=== PATIENT | male | born 1965 | race Caucasian/White ===

== ENCOUNTER 2022-08-01 12:22 | Emergency (ER) | payer BC ==
[~2022-08-01] VITALS: Ht 172.7 cm; Wt 105.0 kg
[~2022-08-01 12:22] MED LIST: ACET1TAB12 PO; CLIN-97 PO; LEVO500T2 PO; LINE600T11 PO; MUPI22OI30 TP; NO HOME MEDS
[2022-08-01 12:49] LABS: BASOPHILS % (AUTO) 0.3 % (0-1); EOSINOPHILS # (AUTO) 0.2 X10'3 (0-0.9); EOSINOPHILS % (AUTO) 1.4 % (0-6); HEMATOCRIT 47.9 % (42.0-52.0); LYMPHOCYTES # (AUTO) 1.6 X10'3 (1.1-4.8); MEAN CORPUSCULAR HEMOGLOBIN 30.5 PG (27.0-31.0); MEAN CORPUSCULAR HGB CONC 33.5 g/dL (33.0-36.5); MEAN CORPUSCULAR VOLUME 91.2 FL (78-98); MEAN PLATELET VOLUME 9.7 FL (7.4-10.4); MONOCYTES # (AUTO) 1.1 X10'3 (0-0.9); MONOCYTES % (AUTO) 8.7 % (2-12); NEUTROPHILS # (AUTO) 9.3 X10'3 (1.8-7.7); NEUTROPHILS % (AUTO) 76.6 % (42-75); PLATELET COUNT 205 X10'3 (140-440); RED BLOOD COUNT 5.25 X10'6 (4.70-6.10); RED CELL DISTRIBUTION WIDTH 13.3 % (11.5-14.5); WHITE BLOOD COUNT 12.2 X10'3 (4.5-11.0)
[2022-08-01 13:04] LABS: ALANINE AMINOTRANSFERASE 35 U/L (12-78); ALBUMIN 4.1 G/DL (3.4-5.0); ALBUMIN/GLOBULIN RATIO 1.1 (1.1-1.5); ALKALINE PHOSPHATASE 75 IU/L (46-116); ANION GAP 7 (8-16); ASPARTATE AMINO TRANSFERASE 22 U/L (10-37); BLOOD UREA NITROGEN 17 MG/DL (7-18); CALCIUM 9.4 MG/DL (8.5-10.1); CHLORIDE 102 MMOL/L (99-107); GLUCOSE 123 MG/DL (70-104); LIPASE 122 U/L (73-393); POTASSIUM 4.1 MMOL/L (3.5-5.1); SODIUM 138 MMOL/L (135-145); TOTAL CARBON DIOXIDE 28.7 MMOL/L (24-32); TOTAL PROTEIN 7.8 G/DL (6.4-8.2); eGFR 78 ML/MIN
[2022-08-01 13:39] LABS: CLARITY,URINE CLEAR (Clear); COLOR,URINE YELLOW (Yellow); GLUCOSE, URINE NEGATIVE (Neg); KETONES,URINE NEGATIVE (Neg); LEUKOCYTE ESTERASE ,URINE NEGATIVE (Neg); NITRITES, URINE NEGATIVE (Neg); OCCULT BLOOD,URINE NEGATIVE (Neg); PROTEIN,URINE NEGATIVE (Neg); UROBILINOGEN,URINE 0.2 E.U/dL (0.2-1.0)
[2022-08-01 13:43] LABS: UA COLLECTION TYPE CLN CATCH MIDSTREAM
[2022-08-01] MEDS ORDERED: HYDROcodone/acetaminophen 5mg/325mg tablet PO ONE (14:15)
[2022-08-01] MEDS ORDERED: iohexol 300mg/ml 100ml inj. ONE (14:23)
[2022-08-01] MEDS ORDERED: AMOX-117 PO (15:58)
[2022-08-01] MEDS ORDERED: amox tr/potassium clavulanate 875/125mg TAB PO ONE (16:00)
[2022-08-01 16:25] VITALS: BP 132/86
== END 2022-08-01 16:28 | disposition home or self-care (01) ==
LOC: ER 12:22
DX: K57.92 Diverticulitis of intestine, part unspecified, without perforation or abscess without bleeding (principal); I10 Essential (primary) hypertension; F15.90 Other stimulant use, unspecified, uncomplicated; Z72.89 Other problems related to lifestyle; Z88.8 Allergy status to other drugs, medicaments and biological substances; Z79.899 Other long term (current) drug therapy
CPT/HCPCS: 36415; 74177; 80053; 81003; 83605; 83690; 85025; 99285; J3490; Q9967

== ENCOUNTER 2022-08-13 08:04 | Emergency (ER) | payer BC ==
[~2022-08-13] VITALS: Ht 172.7 cm; Wt 104.5 kg
[2022-08-13 12:15] VITALS: BP 138/103
[2022-08-13] MEDS ORDERED: iohexol 300mg/ml 100ml inj. ONE (14:09)
[2022-08-13 14:46] LABS: BASOPHILS % (AUTO) 0.3 % (0-1); EOSINOPHILS # (AUTO) 0.1 X10'3 (0-0.9); HEMATOCRIT 42.1 % (42.0-52.0); LYMPHOCYTES # (AUTO) 1.8 X10'3 (1.1-4.8); LYMPHOCYTES % (AUTO) 27.7 % (21-51); MEAN CORPUSCULAR HEMOGLOBIN 30.1 PG (27.0-31.0); MEAN CORPUSCULAR HGB CONC 33.2 g/dL (33.0-36.5); MEAN CORPUSCULAR VOLUME 90.5 FL (78-98); MEAN PLATELET VOLUME 9.2 FL (7.4-10.4); MONOCYTES # (AUTO) 0.6 X10'3 (0-0.9); MONOCYTES % (AUTO) 8.8 % (2-12); NEUTROPHILS # (AUTO) 4.1 X10'3 (1.8-7.7); NEUTROPHILS % (AUTO) 61.2 % (42-75); PLATELET COUNT 179 X10'3 (140-440); RED BLOOD COUNT 4.65 X10'6 (4.70-6.10); RED CELL DISTRIBUTION WIDTH 13.2 % (11.5-14.5); WHITE BLOOD COUNT 6.7 X10'3 (4.5-11.0)
[2022-08-13] MEDS ORDERED: ketorolac trometh. 30mg/ml inj. IV ONE (14:50)
[2022-08-13 15:00] LABS: ALANINE AMINOTRANSFERASE 67 U/L (12-78); ALBUMIN 3.8 G/DL (3.4-5.0); ALBUMIN/GLOBULIN RATIO 1.2 (1.1-1.5); ALKALINE PHOSPHATASE 62 IU/L (46-116); ANION GAP 9 (8-16); ASPARTATE AMINO TRANSFERASE 44 U/L (10-37); BILIRUBIN,TOTAL 0.7 MG/DL (0.1-1.0); BLOOD UREA NITROGEN 15 MG/DL (7-18); BUN/CREATININE RATIO 16.9 (5.4-32.0); CALCIUM 8.9 MG/DL (8.5-10.1); CHLORIDE 103 MMOL/L (99-107); CREATININE 0.89 MG/DL (0.60-1.10); GLUCOSE 96 MG/DL (70-104); LIPASE 149 U/L (73-393); POTASSIUM 3.8 MMOL/L (3.5-5.1); SODIUM 139 MMOL/L (135-145); TOTAL PROTEIN 6.9 G/DL (6.4-8.2); eGFR 89 ML/MIN
== END 2022-08-13 15:30 | disposition home or self-care (01) ==
LOC: ER 08:05
DX: S20.219A Contusion of unspecified front wall of thorax, initial encounter (principal); S30.1XXA Contusion of abdominal wall, initial encounter; I10 Essential (primary) hypertension; F15.10 Other stimulant abuse, uncomplicated; Z88.8 Allergy status to other drugs, medicaments and biological substances; V98.8XXA Other specified transport accidents, initial encounter; Y93.89 Activity, other specified; Y92.89 Other specified places as the place of occurrence of the external cause; Y99.8 Other external cause status
CPT/HCPCS: 36415; 71045; 74177; 80053; 83690; 85025; 99285; J3490; Q9967

== ENCOUNTER 2024-01-08 18:06 | Emergency (ER) | payer BC ==
[~2024-01-08] VITALS: Ht 172.7 cm; Wt 96.0 kg
[2024-01-08 18:50] LABS: BASOPHILS % (AUTO) 0.3 % (0-1); EOSINOPHILS # (AUTO) 0.1 X10'3 (0-0.9); EOSINOPHILS % (AUTO) 1.3 % (0-6); HEMATOCRIT 42.4 % (42.0-52.0); HEMOGLOBIN 14.4 g/dl (14.0-17.9); LYMPHOCYTES # (AUTO) 1.4 X10'3 (1.1-4.8); LYMPHOCYTES % (AUTO) 20.9 % (21-51); MEAN CORPUSCULAR HEMOGLOBIN 32.5 PG (27.0-31.0); MEAN CORPUSCULAR VOLUME 95.6 FL (78-98); MEAN PLATELET VOLUME 9.3 FL (7.4-10.4); MONOCYTES # (AUTO) 0.9 X10'3 (0-0.9); MONOCYTES % (AUTO) 13.1 % (2-12); NEUTROPHILS # (AUTO) 4.3 X10'3 (1.8-7.7); NEUTROPHILS % (AUTO) 64.4 % (42-75); PLATELET COUNT 154 X10'3 (140-440); RED BLOOD COUNT 4.44 X10'6 (4.70-6.10); RED CELL DISTRIBUTION WIDTH 14.3 % (11.5-14.5); WHITE BLOOD COUNT 6.7 X10'3 (4.5-11.0)
[2024-01-08 18:55] LABS: ALBUMIN 3.8 G/DL (3.4-5.0); ANION GAP 12 (8-16); BLOOD UREA NITROGEN 38 MG/DL (7-18); CALCIUM 9.3 MG/DL (8.5-10.1); CHLORIDE 99 MMOL/L (99-107); CREATININE 1.52 MG/DL (0.60-1.10); GLUCOSE 127 MG/DL (70-104); POTASSIUM 3.5 MMOL/L (3.5-5.1); PRO BRAIN NATRIURETIC PEPTIDE < 30 PG/ML (0-125); SODIUM 135 MMOL/L (135-145); TOTAL CARBON DIOXIDE 24.2 MMOL/L (24-32); eCRCL 52 ML/MIN; eGFR 48 ML/MIN
[2024-01-08] MEDS: chlordiazePOXIDE 25mg capsule PO ONE (19:56)
[2024-01-08] MEDS: ondansetron 4mg rapidly disintigrating tab PO ONE (21:27)
[2024-01-08] MEDS: oxyCODONE/APAP 5-325mg tablet PO ONE (21:27)
[2024-01-08] MEDS ORDERED: HYDR-3965 PO (21:29)
[2024-01-08 22:18] VITALS: BP 112/69; PULSE 98; RESP 16; TEMP 98.7; O2SAT 96
== END 2024-01-08 22:19 | disposition home or self-care (01) ==
LOC: ER 18:07
DX: S30.22XA Contusion of scrotum and testes, initial encounter (principal); I10 Essential (primary) hypertension; J44.9 Chronic obstructive pulmonary disease, unspecified; F15.90 Other stimulant use, unspecified, uncomplicated; R07.89 Other chest pain; Z88.1 Allergy status to other antibiotic agents; Z79.1 Long term (current) use of non-steroidal anti-inflammatories (NSAID); Z79.2 Long term (current) use of antibiotics; Z79.899 Other long term (current) drug therapy; X58.XXXA Exposure to other specified factors, initial encounter; Y93.89 Activity, other specified; Y92.89 Other specified places as the place of occurrence of the external cause; Y99.8 Other external cause status
CPT/HCPCS: 36415; 71045; 76870; 80048; 83880; 84484; 85025; 93005; 93976; 99285

== ENCOUNTER 2024-09-03 08:27 | Emergency (ER) | payer BC ==
[~2024-09-03] VITALS: Ht 172.7 cm; Wt 103.8 kg
[2024-09-03 09:24] LABS: BASOPHILS % (AUTO) 0.3 % (0-1); EOSINOPHILS # (AUTO) 0.2 X10'3 (0-0.9); EOSINOPHILS % (AUTO) 2.1 % (0-6); HEMATOCRIT 47.8 % (42.0-52.0); HEMOGLOBIN 16.4 g/dl (14.0-17.9); LYMPHOCYTES # (AUTO) 1.5 X10'3 (1.1-4.8); LYMPHOCYTES % (AUTO) 20.1 % (21-51); MEAN CORPUSCULAR HEMOGLOBIN 31.8 PG (27.0-31.0); MEAN CORPUSCULAR HGB CONC 34.2 g/dL (33.0-36.5); MEAN PLATELET VOLUME 9.2 FL (7.4-10.4); MONOCYTES # (AUTO) 0.8 X10'3 (0-0.9); MONOCYTES % (AUTO) 10.2 % (2-12); NEUTROPHILS # (AUTO) 5.1 X10'3 (1.8-7.7); NEUTROPHILS % (AUTO) 67.3 % (42-75); PLATELET COUNT 204 X10'3 (140-440); RED BLOOD COUNT 5.14 X10'6 (4.70-6.10); RED CELL DISTRIBUTION WIDTH 14.4 % (11.5-14.5); WHITE BLOOD COUNT 7.6 X10'3 (4.5-11.0)
[2024-09-03] MEDS ORDERED: iohexol 300mg/ml 100ml inj. ONE (09:28)
[2024-09-03 09:50] LABS: ALANINE AMINOTRANSFERASE 220 U/L (12-78); ALBUMIN 3.6 G/DL (3.4-5.0); ALBUMIN/GLOBULIN RATIO 0.9 (1.1-1.5); ALKALINE PHOSPHATASE 81 IU/L (46-116); ANION GAP 7 (8-16); ASPARTATE AMINO TRANSFERASE 55 U/L (10-37); BILIRUBIN,TOTAL 1.1 MG/DL (0.1-1.0); BLOOD UREA NITROGEN 19 MG/DL (7-18); BUN/CREATININE RATIO 19.8 (10.0-20.0); CHLORIDE 105 MMOL/L (99-107); CREATININE 0.96 MG/DL (0.60-1.10); GLUCOSE 106 MG/DL (70-104); LIPASE 48 U/L (16-77); SODIUM 138 MMOL/L (135-145); TOTAL CARBON DIOXIDE 25.7 MMOL/L (24-32); TOTAL PROTEIN 7.4 G/DL (6.4-8.2); eCRCL 82 ML/MIN; eGFR 81 ML/MIN
[2024-09-03] MEDS: ondansetron 4mg rapidly disintigrating tab PO ONE (11:45)
[2024-09-03] MEDS: HYDROcodone/acetaminophen 10/325mg tab PO ONE (11:46)
[2024-09-03] MEDS: ciprofloxacin 250mg tablet PO ONE (11:47)
[2024-09-03] MEDS: metroNIDAZOLE 500mg tablet PO ONE (11:47)
[2024-09-03] MEDS: LORazepam 1 MG tablet PO ONE (11:47)
[2024-09-03 11:53] VITALS: TEMP 97
[2024-09-03] MEDS ORDERED: METR-159 PO (13:35)
[2024-09-03] MEDS ORDERED: CIPR-202 PO (13:35)
[2024-09-03] MEDS ORDERED: HYDR-3965 PO (13:36)
[2024-09-03 13:57] LABS: BILIRUBIN,URINE NEGATIVE (Neg); CLARITY,URINE CLEAR (Clear); COLOR,URINE YELLOW (Yellow); GLUCOSE, URINE NEGATIVE (Neg); KETONES,URINE NEGATIVE (Neg); LEUKOCYTE ESTERASE ,URINE NEGATIVE (Neg); NITRITES, URINE NEGATIVE (Neg); OCCULT BLOOD,URINE NEGATIVE (Neg); PROTEIN,URINE NEGATIVE (Neg); UROBILINOGEN,URINE 0.2 E.U/dL (0.2-1.0)
[2024-09-03 14:01] LABS: UA COLLECTION TYPE CLN CATCH MIDSTREAM
[2024-09-03 14:18] VITALS: BP 112/82; PULSE 85; RESP 18; O2SAT 94
== END 2024-09-03 14:20 | disposition home or self-care (01) ==
LOC: ER 08:28
DX: K57.32 Diverticulitis of large intestine without perforation or abscess without bleeding (principal); I10 Essential (primary) hypertension; F15.90 Other stimulant use, unspecified, uncomplicated; Z72.89 Other problems related to lifestyle; Z88.1 Allergy status to other antibiotic agents; Z79.899 Other long term (current) drug therapy
CPT/HCPCS: 36415; 74177; 80053; 81003; 83605; 83690; 84145; 85025; 99285; Q9967

== ENCOUNTER 2024-10-21 20:19 | Emergency (ER) | payer BC ==
[~2024-10-21] VITALS: Ht 172.7 cm; Wt 93.2 kg
[2024-10-21] MEDS: HYDROcodone/acetaminophen 10/325mg tab PO STA (20:45)
--- NOTE | 2024-10-21 21:16 | RADIOLOGY REPORT ---
CLINICAL INDICATION: WRIST PAIN TECHNIQUE: 3 radiographic views of the right wrist were obtained. Comparison: None FINDINGS/IMPRESSION: There is acute fracture of the distal radius with dorsal displacement of the distal fragment and carp al bones and about 1 cm bony overlap of the carpal bones and the distal radius. There is associated s oft tissue edema. [id number] degenerative changes of the 1st carpometacarpal joint. Chronic fracture deformity of the mid diaphysis of the 4th metacarpal.
[2024-10-21] MEDS: ketamine 10mg/ml 20ml inj vial IV ONE (21:40)
[2024-10-21] MEDS ORDERED: ketamine 50mg/5ml syringe IV ONE (22:15)
--- NOTE | 2024-10-21 23:03 | Physician Documentation ---
History of Present Illness ~ Chief Complaint: Wrist pain Stated Complaint: FX WRIST Time Seen by MD: 20:41 Primary Medical Doctor: ROBERTS [place]; [facility] Mode of Arrival: POV HPI 59 year old male fell of a ladder and traumatized his R wrist and R ribcage. Denies pain elsewhere. Denies LOC and blood thinner use Tetanus within 5 years: No Medication Reconciliation Allergies: Coded Allergies: cefazolin (Verified Adverse Reaction, Unknown, ITCHING, 09/03/24) Scheduled Acetaminophen with Codeine (Tylenol with Codeine #3 Tablet), 1 TAB PO Q6H PRN Clindamycin HCL* (Clindamycin HCL*), 1 CAP PO Q6H Levofloxacin (Levaquin), 1 TAB PO DAILY Linezolid (ZYVOX tablet), 1 TAB PO Q12H Mupirocin* (Bactroban*), 1 APPLIC TP TID Miscellaneous Medications Home Med List (No Home Medications), (Reported) Past Medical History Past Medical History: Hypertension Past Surgical History: noncontributory Patient History: (COPD) Chronic obstructive lung disease FATHER (DM Type 2) Diabetes mellitus type 2 FATHER MOTHER (DE) Myocardial infarction FATHER Alcohol Use: Occasionally Drug Use: methamphetamine Lives with: S/O Lives In: Home Occupation: employed Review of Systems All Other Systems at this time: Reviewed and Negative Physical Exam Vital Signs: RN Vital Signs have been reviewed: Yes, Temperature: 98.2, Source: Temporal, Heart Rate: 143, Respiratory Rate: 18, BP: 183/113, Pulse Oximetry: 95, Weight: 93.200 Oxygen Flow Rate: 2.0 Progress Results/Orders Results/Orders Orders - TRESSA DUNN MD Wrist, Complete (3vw Min) (10/21/24 20:33) Chest,Single View (10/21/24 21:24) Application Sugar Tong Splint (10/21/24 ) Wrist, Complete (3vw Min) (10/21/24 22:38) Completed Orders - TRESSA DUNN MD Wrist, Complete (3vw Min) (10/21/24 20:33) Hydrocodone/Apap 10/325 ([place] 10/325mg (10/21/24 20:33) Chest,Single View (10/21/24 21:24) Ketamine 10mg/Ml 20ml Inj (Ketamine 10mg (10/21/24 21:40) Ketamine 10mg/Ml 5ml Syringe ([place] 10 (10/21/24 22:15) Ketamine 50mg/Ml 10ml Inj (Ketamine 50mg (10/21/24 22:15) Wrist, Complete (3vw Min) (10/21/24 22:38) Medications Received in ER Medications (Trade) Dose Ordered Sig/Cal Route PRN Reason Start Time Stop Time Status Last Admin Dose Admin ([place] 10/325mg tab) 1 tab ONCE STAT PO 10/21/24 20:33 10/21/24 20:34 DC 10/21/24 20:45 1 TAB Vital Signs 10/21/24 10/21/24 10/21/24 10/21/24 20:29 20:42 20:45 22:31 Temp 98.2 Pulse 121 112 Resp 18 16 16 22 B/P (MAP) 153/72 117/81 Pulse Ox 93 96 O2 Delivery Nasal Cannula O2 Flow Rate 0 2.0 10/21/24 10/21/24 10/21/24 10/21/24 22:36 22:41 22:44 22:51 Pulse 160 156 156 143 Resp 32 36 40 18 B/P (MAP) 120/82 180/111 183/113 (136) 183/113 (136) Pulse Ox 94 96 95 95 O2 Delivery Nasal Cannula Nasal Cannula Nasal Cannula O2 Flow Rate 2.0 2.0 2.0 2.0 Medical Decision Making Findings 59 year old male with likely R wrist fracture, confirmed on xray which demonstrated distal radius fracture, posteriorly displaced. Procedural sedation and closed reduction resulted in good alignment, splinted and slinged, will follow up with orthopedist. Return precautions. Additional Comment Ddx = fracture, dislocation Departure Disposition: 01 HOME / SELF CARE / HOMELESS Impression: Primary Impression: Radius fracture Condition: Stable Discharge Instructions: Wrist Fracture Treated With Immobilization Additional Instructions: Please call Dr. Peterson' clinic for a follow up appointment. Referrals: NO PRIMARY CARE PROVIDER (PCP) BONNIE PETERSON MD Education Educated: Patient Educated regarding: diagnosis, treatment, prognosis, need for follow up Signature Scribe Signature: . Attestation: . TRESSA DUNN MD October 21, 2024 23:03
[2024-10-21] MEDS: ketamine 50 mg/ml 10ml vial IV ONE (23:09)
--- NOTE | 2024-10-22 00:14 | RADIOLOGY REPORT ---
Clinical History rib pain Comparison None Technique: frontal chest x-ray Without Contrast JAMARI RODRIGUEZ, [id number] Findings: Heart - normal lungs - no consolidation. bones - no acute fracture. Other- Impression: 1. No acute cardiopulmonary disease This report was electronically signed by Aaron Velez MD on 10/22/2024 12:10:20 AM.
[2024-10-22] MEDS ORDERED: HYDR-3965 PO (00:38)
[2024-10-22 00:39] VITALS: BP 122/69; PULSE 110; TEMP 98.2; O2SAT 96
--- NOTE | 2024-10-22 00:42 | RADIOLOGY REPORT ---
Clinical History post reduction Comparison None Technique: right wrist 2 views Without Contrast JAMARI RODRIGUEZ, [id number] findings: Fracture of the distal radius. Carpal bones appear intact Old fracture of the fourth metacarpal. Impression: 1. Fracture of the distal radius. Fracture fragments in near anatomic positioning. This report was electronically signed by Aaron Velez MD on 10/22/2024 12:38:41 AM.
[2024-10-22 01:01] VITALS: RESP 16
[2024-10-22] MEDS: HYDROcodone/acetaminophen 5mg/325mg tablet PO ONE (01:01)
== END 2024-10-22 01:02 | disposition home or self-care (01) ==
LOC: ER 20:20
DX: S52.91XA Unspecified fracture of right forearm, initial encounter for closed fracture (principal); I10 Essential (primary) hypertension; J44.9 Chronic obstructive pulmonary disease, unspecified; Z88.1 Allergy status to other antibiotic agents; W19.XXXA Unspecified fall, initial encounter; Y93.89 Activity, other specified; Y92.89 Other specified places as the place of occurrence of the external cause; Y99.8 Other external cause status
CPT/HCPCS: 25605; 71045; 73110; 94760; 99152; 99153; 99285; A4565; A4620; A6449

== ENCOUNTER 2025-02-04 08:00 | Emergency (ER) | payer BC ==
[~2025-02-04] VITALS: Ht 167.6 cm; Wt 90.3 kg
[~2025-02-04 08:00] MED LIST changes: +CLIN-224 PO; -CLIN-97 PO
[2025-02-04 08:10] VITALS: TEMP 97.8
--- NOTE | 2025-02-04 09:18 | Physician Documentation ---
History of Present Illness ~ Chief Complaint: Groin Pain Stated Complaint: GROIN PAIN Time Seen by MD: 08:39 Primary Medical Doctor: MARCELA; [facility] HPI This is a 59-year-old male with a history of hypertension and prediabetes who presents to the emergency department today for right groin pain. He reports that the pain began last evening when he was having intercourse. He otherwise denies any chills, fever, chest pain, nausea, vomiting, shortness of breath. He also denies pain with urination or penile discharge. No new partners and denies concerns for STIs. Medication Reconciliation Allergies: Coded Allergies: cefazolin (Verified Adverse Reaction, Unknown, ITCHING, 09/03/24) Scheduled Acetaminophen with Codeine (Tylenol with Codeine #3 Tablet), 1 TAB PO Q6H PRN Clindamycin HCL* (Clindamycin HCL*), 1 CAP PO Q6H Doxycycline Hyclate (Doxycycline Hyclate), 1 CAP PO Q12H Levofloxacin (Levaquin), 1 TAB PO DAILY Linezolid (ZYVOX tablet), 1 TAB PO Q12H Mupirocin* (Bactroban*), 1 APPLIC TP TID Naproxen (Naproxen), 1 TAB PO Q12H Miscellaneous Medications Home Med List (No Home Medications), (Reported) Past Medical History Past Medical History: Hypertension Past Surgical History: noncontributory Patient History: (COPD) Chronic obstructive lung disease FATHER (DM Type 2) Diabetes mellitus type 2 FATHER MOTHER ([place]) Myocardial infarction FATHER Alcohol Use: Occasionally Drug Use: methamphetamine Lives with: S/O Lives In: Home Occupation: employed Review of Systems ROS As stated above in the HPI, otherwise all systems are reviewed and negative. Physical Exam Vital Signs: Temperature: 97.8, Source: Temporal, Heart Rate: 105, Respiratory Rate: 18, BP: 117/71, Pulse Oximetry: 97, Weight: 90.300 Oxygen Flow Rate: 0 Physical Exam General: Alert, no apparent distress. Neck: Full range of motion. Respiratory: Lungs clear, no respiratory distress. Chest: No accessory muscle use. Cardiovascular: Regular rate and rhythm, no murmurs. Gastrointestinal: Soft, nontender, nondistended. Bowels sounds present. : TTP right groin and testicle. No palpable hernia. Neurologic: Oriented x4. Psychiatric: Normal mood and affect. Skin: Normal color, warm and dry. No edema, no ecchymosis. Progress Results/Orders Results/Orders Orders - MARICRUZ ZIMMER DRAFTING SUPERVISOR Us Testic/W/Duplex (02/04/25 08:49) Cult Urine + [address] (02/04/25 10:51) Doxycycline 100mg Capsule (Vibramycin 10 (02/04/25 11:04) Completed Orders - MARICRUZ ZIMMER DRAFTING SUPERVISOR Us Testic/W/Duplex (02/04/25 08:49) Ketorolac Trometh 30mg/Ml Vial (Toradol (02/04/25 08:55) Ua W/Microscopic, Cult If Ind (02/04/25 10:15) Azithromycin Tablet (Zithromax Tablet) (02/04/25 11:05) Vital Signs 02/04/25 02/04/25 02/04/25 02/04/25 08:10 08:30 09:29 11:00 Temp 97.8 Pulse 105 100 96 Resp 18 20 13 B/P (MAP) 117/71 130/84 (99) 131/90 (104) Pulse Ox 97 93 O2 Flow Rate 0 0 Laboratory Tests Test 02/04/25 10:15 Urine Specimen Description Cln catch midstream Urine Color Yellow Urine Clarity Slightly cloudy Urine pH 6.5 Urine Specific [place] 1.025 Urine Protein Negative Urine Glucose (UA) Negative Urine Ketones >=80 Urine Occult Blood Negative Urine Nitrite Negative Urine Bilirubin Moderate Urine Urobilinogen 1.0 Urine Leukocyte Esterase Negative Urine RBC None seen Urine WBC 5-10 H Urine Squamous Epithelial Cells None seen Urine Bacteria 2+ Urine Culture Indicated Indicated Volume Urine Centrifuged 10 ml Urine Comment EKG/XRAY/CT/US/VASC/MRI Bone/Soft Tissue X-Ray (Spine) : Additional Comment [facility] [address], [place], [place] - [address] ULTRASOUND Patient: JAMARI RODRIGUEZ Medical Record: [id number] [facility] 1965, Age: 59 Sex: Male Location: ER Patient Status: REG ER Service Date/Time: 02/04/25848 Ordering Physician: MARICRUZ ZIMMER NP Exam: US TESTIC/W/DUPLEX So CLINICAL HISTORY: trauma,pain TECHNIQUE: High resolution scrotal ultrasound was performed with a linear transducer with duplex doppler and sales service representative images acquired. COMPARISON: US US TESTIC/W/DUPLEX on DOS: 01/08/24 FINDINGS: The right testis measures 3.9 X 2.6 X 2.6 cm. The left testis measures 4.1 X 2.2 X 3.1 cm. There is no intratesticular mass or calcification. The bilateral epididymides appear unremarkable. There is a borderline left varicocele. There are normal spectral doppler and vascular waveforms. IMPRESSION: No acute sonographic abnormality of the scrotum/testicles. Electronically Signed by:SURAJ LEDBETTER MD Date & Time: 02/04/25947 Dictated by: SURAJ LEDBETTER MD Dictation date and time: 02/04/25947 Primary Care Provider: NO PRIMARY CARE PROVIDER cc: MARICRUZ ZIMMER NP ~ Medical Decision Making Genital Diff Dx:Considerations: Include: Abscess, Balanitis, Balanoposthitis, Cellulitis, Epididymitis, Entrapment injury, Brionna's gangrene, Foreign body, Facture penis, Hydrocele, Inguinal hernia, Post-op Complication, Paraphimosis, Prostatitis, Priapism, Syphilis, Testicular torsion, Torsion-epididymis, Torsion-appendiceal, Urinary retention, Urethritis, Urethritis-chlamydial, Urethritis-gonococcal, UTI Additional Comment 59-year-old male, reporting right groin and testicular pain ever since intercourse last evening. Denies insertive anal intercourse, chills, fever, nausea, vomiting. Chronic back pain. Doubt kidney stone with no blood in uri ne. However, because signs of infection seen on urinalysis, patient will be treated for presumed epididymitis. He is allergic to cefazolin. He will be given azithromycin 500 mg p.o. x1 and then treated with a ten-day course of doxycycline. He is to return if worse. Ultrasound normal, no evidence of torsion. Departure Time of Disposition: 10:50 Disposition: 01 HOME / SELF CARE / HOMELESS Impression: Primary Impression: Contusion of testis Additional Impressions: Right groin pain Right epididymitis Condition: Stable Discharge Instructions: Epididymitis, Testicular Self-Exam Additional Instructions: Suspect epididymitis due to signs of infection in urine along with groin pain. You were given a dose of antibiotics in the ER. Complete the antibiotics sent to your pharmacy as well. Normal ultrasound. No evidence of testicular torsion or other abnormality. Please followup with your primary care. RETURN IF WORSE. Ice or heat. Naproxen or acetaminophen as needed per label instructions. Referrals: NO PRIMARY CARE PROVIDER (PCP) Prescriptions Doxycycline Hyclate (Doxycycline Hyclate) 100 Mg Capsule 1 CAP PO Q12H for 10 Days, #20 CAP Prov: MARICRUZ ZIMMER NP 02/04/25 Naproxen (Naproxen) 500 Mg Tablet 1 TAB PO Q12H, #20 TAB Prov: MARICRUZ ZIMMER NP 02/04/25 Education Educated: Patient Educated regarding: diagnosis, treatment, prognosis, need for follow up Signature Scribe Signature: x Attestation: The note accurately reflects work and decisions made by me.Maricruz Gibson NP 02/04/25 09:17 MARICRUZ ZIMMER NP Feb 04, 2025 09:18
[2025-02-04 09:29] VITALS: O2SAT 93
[2025-02-04] MEDS: ketorolac trometh 30MG/ML vial 30 MG/ML VIAL IM ONE (09:47)
--- NOTE | 2025-02-04 09:51 | RADIOLOGY REPORT ---
So CLINICAL HISTORY: trauma,pain TECHNIQUE: High resolution scrotal ultrasound was performed with a linear transducer with duplex dopp ler and solar manufacturer's representative images acquired. COMPARISON: US US TESTIC/W/DUPLEX on DOS: 01/08/24 FINDINGS: The right testis measures 3.9 X 2.6 X 2.6 cm. The left testis measures 4.1 X 2.2 X 3.1 cm. There is no intratesticular mass or calcification. The bilateral epididymides appear unremarkable. There is a borderline left varicocele. There are normal spectral doppler and vascular waveforms. IMPRESSION: No acute sonographic abnormality of the scrotum/testicles.
[2025-02-04 10:39] LABS: LEUKOCYTE ESTERASE ,URINE NEGATIVE (Neg); NITRITES, URINE NEGATIVE (Neg); OCCULT BLOOD,URINE NEGATIVE (Neg)
[2025-02-04 10:42] LABS: UA COLLECTION TYPE CLN CATCH MIDSTREAM
[2025-02-04 10:50] LABS: SQUAMOUS EPITHELIAL CELL,UR NONE SEEN /LPF (FEW)
[2025-02-04] MEDS ORDERED: NAPR-56 PO (10:52)
[2025-02-04] MEDS ORDERED: DOXY-1 PO (10:59)
[2025-02-04 11:00] VITALS: BP 131/90; PULSE 96; RESP 13
[2025-02-04] MEDS: DOXYCYCLINE 100MG CAPSULE PO STA (11:09)
== END 2025-02-04 11:12 | disposition home or self-care (01) ==
LOC: ER 08:01
DX: S30.22XA Contusion of scrotum and testes, initial encounter (principal); N45.1 Epididymitis; E11.9 Type 2 diabetes mellitus without complications; F15.90 Other stimulant use, unspecified, uncomplicated; I10 Essential (primary) hypertension; J44.9 Chronic obstructive pulmonary disease, unspecified; Z88.1 Allergy status to other antibiotic agents; Z79.899 Other long term (current) drug therapy; Z72.89 Other problems related to lifestyle; X58.XXXA Exposure to other specified factors, initial encounter; Y93.89 Activity, other specified; Y92.89 Other specified places as the place of occurrence of the external cause; Y99.8 Other external cause status
CPT/HCPCS: 76870; 81001; 87088; 93976; 99284

== ENCOUNTER 2025-02-24 19:25 | Emergency (ER) | payer BC ==
[~2025-02-24 19:25] MED LIST changes: +NAPR-56 PO
[2025-02-24 20:23] LABS: MEAN PLATELET VOLUME 9.1 FL (7.4-10.4); RED CELL DISTRIBUTION WIDTH 14.6 % (11.5-14.5)
[2025-02-24 20:37] LABS: CREATININE 0.91 MG/DL (0.60-1.10); TOTAL CARBON DIOXIDE 25.2 MMOL/L (24-32); eGFR 86 ML/MIN
--- NOTE | 2025-02-24 20:45 | RADIOLOGY REPORT ---
Exam: CT CT ABDOMEN PELVIS History: ABDOMINAL PAIN Comparison Study: CT CT ABDOMEN PELVIS W/ IV CONTRAST on DOS: 09/03/24, CT ABDOMEN PELVIS on DOS: 08/13/22, CT ABDOMEN PELVIS on DOS: 08/01/22 Technique: Multidetector spiral CT of the abdomen was performed from lung bases to pubic symphysis. Imaging was performed without IV contrast. Axial, coronal and sagittal multiplanar reformats were obtained from the axial data set by the technologist. Radiation dose : 1. Abdomen/Pelvis: CTDIvol 28.82 mGy, DLP 1364.9 mGy*cm. Findings: Evaluation of solid organs is limited due to lack of intravenous contrast use. Lung Bases: No acute or significant lung base finding. Normal heart size. No pleural or pericardial effusion. Liver: The liver is normal in size. No focal lesions. Gallbladder and biliary Tree: Unremarkable Spleen: Unremarkable Pancreas: The pancreas is grossly normal in appearance. Adrenal Glands: Unremarkable Kidneys: Kidneys are grossly normal without calculi or hydronephrosis. Bladder: Grossly unremarkable for degree of distention. Bowel: Colonic diverticulosis. Stool filled distention of the proximal colon. Ascites: Absent Lymphadenopathy: No mesenteric, retroperitoneal or periportal lymphadenopathy. Abdominal wall and Mesentery: Unremarkable. Vasculature: The visualized abdominal aorta is normal in size and caliber. Evaluation of abdominal and pelvic vessels is limited due to lack of intravenous contrast. Pelvic Organs: Unremarkable Musculoskeletal: No aggressive focal bony lesions, acute fractures or dislocation. IMPRESSION: Large volume of stool in the proximal colon. Otherwise no clear cause for symptoms. Radiation optimization: All CT scans at this facility use at least one of these dose optimization techniques: automated exposure control mA and/or kV adjustment per patient size (includes targeted exams where dose is matched to clinical indication) or iterative reconstruction.
[2025-02-24 21:36] VITALS: TEMP 98.4
[2025-02-24 22:51] VITALS: BP 128/87; PULSE 86; O2SAT 97
--- NOTE | 2025-02-24 22:55 | Physician Documentation ---
History of Present Illness General Chief Complaint: Abdominal Pain Stated Complaint: ABD PAIN Time Seen by MD: 22:54 Primary Medical Doctor: MARCELA; [facility] History of Present Illness Initial Comments Patient is a 59-year-old male with a history of hypertension he has states he develops significant 10/10 abdominal pain proximally 1800 today. Patient states pain has since improved. He states the pain was sharp left-sided. He complains of some nausea with it. The patient denies any vomiting. Patient denies any history of kidney stones or similar pain. Patient denies any fevers or chills. Patient denies any diarrhea. Does complain of some decreased force of stream and decreased urine output over last several days. He denies any dysuria. Medication Reconciliation Allergies: Coded Allergies: cefazolin (Verified Adverse Reaction, Unknown, ITCHING, 09/03/24) Scheduled Acetaminophen with Codeine (Tylenol with Codeine #3 Tablet), 1 TAB PO Q6H PRN Clindamycin HCL* (Clindamycin HCL*), 1 CAP PO Q6H Levofloxacin (Levaquin), 1 TAB PO DAILY Linezolid (ZYVOX tablet), 1 TAB PO Q12H Mupirocin* (Bactroban*), 1 APPLIC TP TID Naproxen (Naproxen), 1 TAB PO Q12H Miscellaneous Medications Home Med List (No Home Medications), (Reported) Past Medical History Past Medical History: Hypertension Past Surgical History: noncontributory Alcohol Use: Occasionally Drug Use: methamphetamine Lives with: S/O Lives In: Home Occupation: employed Physical Exam Physical Exam Vital Signs: Temperature: 98.4, Source: Oral, Heart Rate: 86, Respiratory Rate: 16, BP: 128/87, Pulse Oximetry: 97 Oxygen Flow Rate: 0 Physical Exam VITALS: Reviewed and as above. GENERAL: Alert, no apparent distress. HEENT: Normocephalic, atraumatic, PERRL, EOMI, dry mucosa, no erythema RESPIRATORY: Lungs clear, normal breath sounds, no respiratory distress. CHEST: No accessory muscle use, no retractions CV: Regular rate, rhythm, no edema, no murmur, No: JVD GI: Soft, non-tender, bowels sounds present, no rebound, guarding, or rigidity BACK: No CVA tenderness, or swelling MUSCULOSKELETAL: No deformities, no edema SKIN: Warm and dry, no rash NEURO: Oriented x4, No motor or sensory deficit PSYCH: Normal mood and affect, no agitation Progress Results/Orders Results/Orders Orders - OHABHISHEK BARON MD Ct Abdomen Pelvis (02/24/25 20:10) Completed Orders - ABHISHEK ESPINAL MD Cbc/Diff (02/24/25 19:52) Lipase (02/24/25 19:52) CMP (02/24/25 19:52) Ct Abdomen Pelvis (02/24/25 20:10) Ua W/Microscopic, Cult If Ind (02/24/25 23:20) Vital Signs 02/24/25 02/24/25 02/24/25 02/24/25 19:42 21:36 22:51 23:40 Temp 98.4 98.4 Pulse 96 94 86 Resp 16 18 16 17 B/P (MAP) 99/61 96/65 (75) 128/87 (101) Pulse Ox 96 97 97 O2 Flow Rate 0 0 0 Laboratory Tests Test 02/24/25 20:03 02/24/25 23:20 White Blood Count 5.9 Red Blood Count 4.73 Hemoglobin 14.9 Hematocrit 43.5 Mean Corpuscular Volume 91.9 Mean Corpuscular Hemoglobin 31.4 H Mean Corpuscular Hemoglobin Concent 34.2 Red Cell Distribution Width 14.6 H Platelet Count 199 Mean Platelet Volume 9.1 Neutrophils (%) (Auto) 54.2 Lymphocytes (%) (Auto) 33.2 Monocytes (%) (Auto) 8.5 Eosinophils (%) (Auto) 3.6 Basophils (%) (Auto) 0.5 Neutrophils # (Auto) 3.2 Lymphocytes # (Auto) 2.0 Monocytes # (Auto) 0.5 Eosinophils # (Auto) 0.2 Basophils # (Auto) 0.0 CBC Comment Sodium Level 141 Potassium Level 3.2 L Chloride Level 101 Carbon Dioxide Level 25.2 Anion Gap 15 Blood Urea Nitrogen 20 H Creatinine 0.91 Estimated GFR/1.73 m2 86 BUN/Creatinine Ratio 22.0 H Glucose Level 106 H Calcium Level 9.5 Total Bilirubin 0.4 Aspartate Amino Transf (AST/SGOT) 22 Alanine Aminotransferase (ALT/SGPT) 25 Alkaline Phosphatase 70 Total Protein 7.4 Albumin 3.6 Globulin 3.8 Albumin/Globulin Ratio 0.9 L Lipase 39 Chemistry Comments Urine Specimen Description Cln catch midstream Urine Color Yellow Urine Clarity Clear Urine pH 6.0 Urine Specific [place] 1.015 Urine Protein Negative Urine Glucose (UA) Negative Urine Ketones Trace H Urine Occult Blood Moderate H Urine Nitrite Negative Urine Bilirubin Negative Urine Urobilinogen 0.2 Urine Leukocyte Esterase Negative Urine RBC 20-50 Urine WBC 0-4 Urine Squamous Epithelial Cells Few Urine Bacteria None seen Urine Mucus Few Urine Culture Indicated Not ind Volume Urine Centrifuged 10 ml Urine Comment Departure Disposition: 01 HOME / SELF CARE / HOMELESS Impression: Primary Impression: Renal colic Discharge Instructions: Renal Colic, [id number] Referrals: NO PRIMARY CARE PROVIDER (PCP) ABHISHEK ESPINAL MD Feb 24, 2025 22:55
[2025-02-24 23:34] LABS: LEUKOCYTE ESTERASE ,URINE NEGATIVE (Neg); NITRITES, URINE NEGATIVE (Neg); OCCULT BLOOD,URINE MODERATE (Neg)
[2025-02-24 23:40] VITALS: RESP 17
[2025-02-24 23:54] LABS: UA COLLECTION TYPE CLN CATCH MIDSTREAM
[2025-02-24 23:55] LABS: MUCUS STRANDS FEW /LPF (Neg); SQUAMOUS EPITHELIAL CELL,UR FEW /LPF (FEW)
[2025-02-25] MEDS ORDERED: TAMS-55 PO (00:18)
== END 2025-02-25 00:48 | disposition home or self-care (01) ==
LOC: ER 19:26
DX: N23 Unspecified renal colic (principal); I10 Essential (primary) hypertension; F15.90 Other stimulant use, unspecified, uncomplicated; Z88.1 Allergy status to other antibiotic agents; Z79.899 Other long term (current) drug therapy; Z72.89 Other problems related to lifestyle
CPT/HCPCS: 36415; 74176; 80053; 81001; 83690; 85025; 99284

== ENCOUNTER 2025-05-14 19:55 | Emergency (ER) | payer BC ==
[~2025-05-14] VITALS: Ht 174 cm; Wt 94.9 kg
[~2025-05-14 19:55] MED LIST changes: -NAPR-56 PO
[2025-05-14] MEDS ORDERED: DOCU-391 PO (20:58)
[2025-05-14] MEDS ORDERED: TAMSULOSIN (20:58)
[2025-05-14] MEDS ORDERED: PANT40TA54 PO (20:58)
[2025-05-14] MEDS ORDERED: AMIT25TA22 (20:58)
[2025-05-14] MEDS ORDERED: MELO-102 PO (20:58)
[2025-05-14] MEDS ORDERED: LISI20TA28 PO (20:58)
--- NOTE | 2025-05-14 21:24 | RADIOLOGY REPORT ---
CLINICAL INDICATION: RIGHT 5TH DIGIT PAIN TECHNIQUE: 3 views DI FOOT, COMPLETE (3VW MIN) COMPARISON: DI WRIST, COMPLETE (3VW MIN) on DOS: 10/21/24, DI WRIST, COMPLETE (3VW MIN) on DOS: 10/21/24 FINDINGS: Comminuted mildly displaced fracture of the 5th proximal phalanx involving the articular surface of the head. Faint surrounding mineralization compatible with callus. Associated soft tissue swelling. No additional identified fracture. No dislocation. [id number] polyarticular osteoarthrosis. Calcaneal enthesophytes. IMPRESSION: 1. Right 5th toe proximal phalanx fracture appears subacute and partially healed, although surrounded by soft tissue swelling.
--- NOTE | 2025-05-14 21:32 | Physician Documentation ---
History of Present Illness ~ Chief Complaint: Foot pain Stated Complaint: RIGHT TOE PAIN Time Seen by MD: 20:46 OK to notify your PCP?: Yes Primary Medical Doctor: [facility] Source: patient Mode of Arrival: POV Exam Limitations: no limitations HPI This is a 51-year-old male who comes in complaining of pain of the right small toe. The patient said he fractured it about a month or so ago and continues to bumps of the toe exacerbating the pain. He says that has now red and swollen and he is concerned it might be infected has a has a to inspection of the knee for with the trend in his sepsis. The patient denies diabetes. He denies breaks in the skin. Tetanus witin 5 years: No Medication Reconciliation Allergies: Coded Allergies: cefazolin (Verified Adverse Reaction, Unknown, ITCHING, 05/14/25) Scheduled Docusate Sodium (Docusate Sodium), 1 CAP PO BID, (Reported) Lisinopril (Lisinopril), 1 TAB PO BID, (Reported) Meloxicam (Meloxicam), 1 TAB PO DAILY, (Reported) Pantoprazole Sodium (Pantoprazole Sodium), 1 TAB PO DAILY, (Reported) Miscellaneous Medications Amitriptyline Hcl (Amitriptyline Hcl), (Reported) [Tamsulosin], (Reported) Discontinued Medications Acetaminophen with Codeine (Tylenol with Codeine #3 Tablet), 1 TAB PO Q6H PRN Discontinued Reason: patient no longer taking Clindamycin HCL* (Clindamycin HCL*), 1 CAP PO Q6H Discontinued Reason: patient no longer taking Home Med List (No Home Medications), (Reported) Discontinued Reason: patient no longer taking Levofloxacin (Levaquin), 1 TAB PO DAILY Discontinued Reason: patient no longer taking Linezolid (ZYVOX tablet), 1 TAB PO Q12H Discontinued Reason: patient no longer taking Mupirocin* (Bactroban*), 1 APPLIC TP TID Discontinued Reason: patient no longer taking Past Medical History Past Medical History: Hypertension Past Surgical History: noncontributory Patient History: (COPD) Chronic obstructive lung disease FATHER (DM Type 2) Diabetes mellitus type 2 FATHER MOTHER ([place]) Myocardial infarction FATHER Alcohol Use: Occasionally Drug Use: methamphetamine Lives with: S/O Lives In: Home Occupation: employed Physical Exam Vital Signs: Temperature: 98.2, Source: Oral, Heart Rate: 103, Respiratory Rate: 18, BP: 111/90, Pulse Oximetry: 99, Weight: 94.900 Oxygen Flow Rate: 0 Pulse Oximetry Reflects: adequate oxygenation General Appearance: alert, WD/WN, no apparent distress Digit To inspection of the right foot the patient has that has erythema and edema of the 5th toe. No break in the skin. No ascending lymphangitis. There is fusiform erythema and edema. It is tender to palpation. No crepitus or deformity. Progress Results/Orders Reviewed/noted all lab results: Yes Results/Orders Completed Orders - ISH RIVAS Cbc/Diff (05/14/25 21:10) CMP (05/14/25 21:10) Uric Acid (05/14/25 21:10) Ceftriaxone Im Kit W/Lidocaine (Rocephin (05/14/25 22:30) Sulfamethox/Trimetho. Ds Tab (Septra Ds (05/14/25 22:30) Medications Received in ER Medications (Trade) Dose Ordered Sig/Cal Route PRN Reason Start Time Stop Time Status Last Admin Dose Admin (Rocephin 1GM IM kit (w/lidocaine diluent)) 1,000 mg ONCE ONCE IM 05/14/25 22:30 05/14/25 22:31 DC 05/14/25 22:44 1,000 MG (Septra DS tab) 2 tab ONCE ONCE PO 05/14/25 22:30 05/14/25 22:39 DC 05/14/25 22:46 2 TAB Vital Signs 05/14/25 20:07 Temp 98.2 Pulse 103 Resp 18 B/P (MAP) 111/90 Pulse Ox 99 O2 Flow Rate 0 Laboratory Tests Test 05/14/25 21:32 White Blood Count 6.6 Red Blood Count 4.79 Hemoglobin 15.6 Hematocrit 45.0 Mean Corpuscular Volume 94.0 Mean Corpuscular Hemoglobin 32.6 H Mean Corpuscular Hemoglobin Concent 34.7 Red Cell Distribution Width 14.8 H Platelet Count 205 Mean Platelet Volume 8.8 Neutrophils (%) (Auto) 50.8 Lymphocytes (%) (Auto) 34.4 Monocytes (%) (Auto) 11.8 Eosinophils (%) (Auto) 2.6 Basophils (%) (Auto) 0.4 Neutrophils # (Auto) 3.3 Lymphocytes # (Auto) 2.3 Monocytes # (Auto) 0.8 Eosinophils # (Auto) 0.2 Basophils # (Auto) 0.0 CBC Comment Sodium Level 139 Potassium Level 3.6 Chloride Level 103 Carbon Dioxide Level 23.2 L Anion Gap 13 Blood Urea Nitrogen 33 H Creatinine 0.96 Estimated GFR/1.73 m2 80 BUN/Creatinine Ratio 34.4 H Glucose Level 100 Uric Acid 6.5 Calcium Level 8.9 Total Bilirubin 1.1 H Aspartate Amino Transf (AST/SGOT) 21 Alanine Aminotransferase (ALT/SGPT) 31 Alkaline Phosphatase 74 Total Protein 7.7 Albumin 4.1 Globulin 3.6 Albumin/Globulin Ratio 1.1 Chemistry Comments EKG/XRAY/CT/US/VASC/MRI Bone/Soft Tissue X-Ray (Ext.) : Interpreted By: self Additional Comment X-ray right foot three-view interpreted me: There is fracture of the proximal phalanx of the 5th toe. That has soft tissue swelling of the right 5th toe. Medical Decision Making Findings Blood work did not show evidence of significant infection or gout. X-rays demonstrate subacute fracture of the right small toe. The area is erythematous and edematous in the patient has had issues with the cellulitis turning in his sepsis in the past. I gave him Rocephin 1 g IM here in Bactrim DS x2 tabs p.o.. The plan has a continue with the Keflex 500 mg 4 times a day for 10 days Bactrim twice a day for 10 days. He is elevate the toe frequently. Ibuprofen for pain. Follow up with the primary care physician for recheck in the next couple of days and in his symptoms worsen he should return to the ER. General Diff Dx:Considerations: Include: Abrasion, Contusion, Fracture, Hematoma, Laceration, Malunion, Neurovascular injury, Open fracture, Sprain, Ulcer, Other Knee Diff Dx:Considerations: Include: Abrasion, Arthritis, Contusion, DJD, Fracture-femur, Fracture-fibula, Fracture-patella, Fracture-tibia, Gout, Hematoma, Laceration, Meniscus injury, Neurovascular injury, Open fracture, Rheumatoid arthritis, Septic, Sprain, Sprain-MCL, Sprain-LCL, Sprain-ACL, Sprain-PCL, Other Ankle Diff Dx:Considerations: Include: Abrasion, Arthritis, Contusion, DJD, Fracture-metatarsal, Fracture-fibula, Fracture-tarsal, Fracture-tibia, Gout, Hematoma, Laceration, Malunion, Neurovascular injury, Nonunion, Open fracture, Osteomyelitis, Rheumatoid arthritis, Sprain, Septic, Ulcer, Other Foot Diff Dx:Considerations: Include: Abrasion, Arthritis, Cellulitis, Contusion, Dislocation, DJD, Fracture-metatarsal, Fracture-phalynx, Fracture- tarsal, Gout, Hematoma, Ingrown toenail, Laceration, Malunion, Neurovascular injury, Open fracture, Paronychia, Puncture, Rheumatoid, Sprain, Septic, Subungual hematoma, Ulcer, Other Toe Diff Dx:Considerations: Include: Abrasion, Cellulitis, Contusion, Dislocation, Felon, Fracture, Hematoma, Laceration, Neurovascular injury, Open fracture, Paronychia, Subungual hematoma, Other Additional Comment Right 5th toe fracture. Cellulitis with the right 5th toe. Gout. Departure Disposition: HOME / SELF CARE / HOMELESS Impression: Primary Impression: Cellulitis of fifth toe of right foot Additional Impression: Fracture of fifth toe, right, closed Condition: Stable Discharge Instructions: Cellulitis Additional Instructions: Take the antibiotics as prescribed. You can use chlorhexidine (Hibiclens) soap to wash the area with. Follow up with the primary care physician for recheck in the next couple of days and return to the ER for any worsening or concerning symptoms. Referrals: NO PRIMARY CARE PROVIDER (PCP) Prescriptions Sulfamethoxazole/Trimethoprim (Bactrim Ds Tablet) 800 Mg-160 Mg Tablet 1 TAB PO Q12H for 10 Days, #20 TAB Prov: ISH RIVAS 05/14/25 Cephalexin*Monohydrate* (Keflex*) 500 Mg Capsule 1 CAP PO QID, #40 CAP Prov: ISH RIVAS 05/14/25 ISH RIVAS May 14, 2025 21:32
[2025-05-14 21:46] LABS: MEAN PLATELET VOLUME 8.8 FL (7.4-10.4); RED CELL DISTRIBUTION WIDTH 14.8 % (11.5-14.5)
[2025-05-14 22:02] LABS: CREATININE 0.96 MG/DL (0.60-1.10); TOTAL CARBON DIOXIDE 23.2 MMOL/L (24-32); eCRCL 83 ML/MIN; eGFR 80 ML/MIN
[2025-05-14] MEDS: CefTRIAXone 1000mg IM Kit (w/lidocaine diluent) IM ONE (22:44)
[2025-05-14] MEDS: sulfamethoxazole/trimethoprim DS (800/160mg) tablet PO ONE (22:46)
[2025-05-14] MEDS ORDERED: CEPH-585 PO (23:14)
[2025-05-14] MEDS ORDERED: SULF1TAB49 PO (23:14)
[2025-05-14 23:23] VITALS: BP 110/89; PULSE 99; RESP 20; TEMP 98.6; O2SAT 99
== END 2025-05-14 23:24 | disposition home or self-care (01) ==
LOC: ER 19:56
DX: S92.501A Displaced unspecified fracture of right lesser toe(s), initial encounter for closed fracture (principal); L03.031 Cellulitis of right toe; I10 Essential (primary) hypertension; E11.9 Type 2 diabetes mellitus without complications; F15.90 Other stimulant use, unspecified, uncomplicated; J44.9 Chronic obstructive pulmonary disease, unspecified; Z88.1 Allergy status to other antibiotic agents; Z79.899 Other long term (current) drug therapy; Z72.89 Other problems related to lifestyle; X58.XXXA Exposure to other specified factors, initial encounter; Y93.89 Activity, other specified; Y92.89 Other specified places as the place of occurrence of the external cause; Y99.8 Other external cause status
CPT/HCPCS: 36415; 73630; 80053; 84550; 85025; 96372; 99284; J0696